=== PATIENT | female | born 1990 | race Caucasian/White ===

== ENCOUNTER → 2022-03-11 09:50 | Outpatient (CLI) | payer OTHER, SELFPAY ==
--- NOTE | ~2022-03-11 | US_ITS ---
Thyroid ultrasound. Clinical History: Goiter Findings: Real-time sonography of the thyroid gland was performed. The right lobe measures 5.6 x 1.9 x 1.5 cm. The left lobe measures 4.8 x 1.3 x 1.5 cm. The isthmus is 3 mm in AP diameter. 3 mm hypoechoic, circumscribed right midpole nodule noted. Impression: Tiny right thyroid lobe nodule, as detailed above, which requires no further follow-up. Reviewed, dictated and finalized at location M. [employer] ANALYST Impression: Tiny right thyroid lobe nodule, as detailed above, which requires no further fo llow-up.
== END ==
PROVIDERS: PCP Family Medicine; Visit Provider Internal Medicine Endocrinology, Diabetes & Metabolism
DX: E04.1 Nontoxic single thyroid nodule (principal)
CPT/HCPCS: 76536

== ENCOUNTER 2022-12-19 03:23 | Observation (INO) | payer OTHER, SELFPAY ==
[2022-12-19 03:55] VITALS: BP 127/66; PULSE 69
[2022-12-19 04:01] VITALS: BP 125/71; PULSE 65
[2022-12-19 04:11] VITALS: BMI 31.7
--- NOTE | 2022-12-19 04:11 | OBADM ---
This patient, Mamie Vela, admitted to the OB room [facility] for observation. Patient/family oriented to hospital policies and general routines including ID bracelet, bed and alarms, visiting hours, pain management, procedures, bathroom and other care routines, personal items, smoking policy, room service/diet, and visiting hours. Patient/Family are encouraged to report perceived risks to care and to ask questions if they do not understand what they are told or what they should do.
[2022-12-19 04:16] VITALS: BP 102/60; PULSE 65
[2022-12-19] MEDS: ONDANSETRON HCL ODT 4 MG TABLET PO (04:37)
[2022-12-19 04:38] VITALS: BP 127/66; PULSE 71
--- NOTE | 2023-01-10 20:55 | PM.OBTRLD ---
OB - Triage/Final Diagnosis Visit Information Comments/Additional reasons for admission: I have assessed the risk for this patient, Mamie Vela, and determined that she would benefit from observation care. Final Diagnosis (1) False labor: Code(s): O47.9 - False labor, unspecified Status: Acute
== END 2022-12-19 04:38 | disposition home or self-care (01) ==
PROVIDERS: Admitting Provider Obstetrics & Gynecology; PCP Family Medicine; Visit Provider Obstetrics & Gynecology
DX: O47.03 False labor before 37 completed weeks of gestation, third trimester (principal); Z3A.32 32 weeks gestation of pregnancy
CPT/HCPCS: 59025; A9270; G0378; G0379

== ENCOUNTER 2022-12-20 07:46 | Outpatient (RCR) | payer OTHER, SELFPAY ==
[2022-11-29] MEDS: RHO(D) IMMUNE GLOBULIN 300 MCG/2 ML SYRINGE IM (17:07)
--- NOTE | ~2022-12-20 | US_ITS ---
US OB limited w BPP DATE: 12/20/2022 09:23 INDICATION: Biophysical profile and measurement of amniotic fluid index TECHNIQUE: Real-time and color flow imaging and Doppler analysis COMPARISON: None FINDINGS: Live montemayor intrauterine gestation, fetus in longitudinal lie, vertex presentation with heart rate of 145 bpm. Anterior placenta, no evidence of previa. Three-vessel umbilical cord. Amniotic fluid index measures 14.3 cm. (5th percentile BOAZ: 8.6 cm; 95th percentile BOAZ: 24.2 cm). BIOPHYSICAL PROFILE reported by extractions technician: breathin out of 2 movement: 2 out of 2 tone: 2 out of 2 Amniotic fluid pocket: 2 out of 2 Total score: 8 out of 8 IMPRESSION: Normal biophysical profile score of 8 out of 8 Amniotic fluid index measures 14.3 cm, normal Reviewed, dictated and finalized at Location [facility]. Reviewed, dictated and finalized at location A.
[2022-12-20 09:49] VITALS: BP 136/74; PULSE 84
== END 2023-01-28 10:19 | disposition home or self-care (01) ==
LOC: ANHOBOP 07:46
PROVIDERS: PCP Family Medicine; Visit Provider Obstetrics & Gynecology
DX: Z36.89 Encounter for other specified antenatal screening (principal); Z29.13 Encounter for prophylactic Rho(D) immune globulin; O36.0130 Maternal care for anti-D [Rh] antibodies, third trimester, not applicable or unspecified; Z3A.00 Weeks of gestation of pregnancy not specified
CPT/HCPCS: 36415; 59025; 76815; 76819; 85461; 86850; 86900; 86901; 90384; 96372; J2790

== ENCOUNTER 2022-12-29 16:58 | Observation (INO) | payer OTHER, SELFPAY ==
[2022-12-29] VITALS (17 sets, daily range): BP systolic 123–144; BP diastolic 74–84; PULSE 79–101; O2SAT 99–100
[2022-12-29 17:48] LABS: Hematocrit 21.5 % (37.0-47.0); Mean Corpuscular HGB Conc 31.6 g/dl (32-36); Mean Corpuscular Hemoglobin 30.9 pg (26-34); Mean Corpuscular Volume 97.7 fl (80-100); Mean Platelet Volume 11.9 fl (7.4-10.4); Platelet Count Result 105 k/mm3 (150-375); Red Cell Distribution Width 18.4 % (11.5-14.5); White Blood Count 13.6 K/mm3 (4.5-10.0)
[2022-12-29 17:53] LABS: Creatinine Urine 44.9 mg/dL; Total Protein Urine Random 61 mg/dL; Ur Ttl Prot Creatinine Ratio 1.36 mg/mg (0-0.20)
[2022-12-29 18:03] LABS: Alanine Aminotransferase 71 U/L (6-35); Albumin Level 3.2 g/dL (3.5-5.1); Alkaline Phosphatase 106 U/L (38-126); Anion Gap 4 mmol/L (8-16); Aspartate Amino Transferase 59 U/L (14-36); Bilirubin,Total 0.5 mg/dL (0.2-1.3); Blood Urea Nitrogen 25 mg/dL (7-17); Calcium 8.1 mg/dL (8.4-10.2); Carbon Dioxide 22 mmol/L (22-30); Chloride 104 mmol/L (98-107); Estimated Glomerular Filt Rate 57; Glucose 81 mg/dL (65-110); Potassium 4.9 mmol/L (3.4-5.0); Sodium 130 mmol/L (137-145); Uric Acid 11.3 mg/dL (2.5-7.5)
[2022-12-29 18:04] LABS: Appearance Urine Clear (Clear); Bacteria Urine 1+ /hpf; Bilirubin Urine Negative (Negative); Blood Urine 1+ (Negative); Color Urine Yellow (Yellow); Glucose Urine UA Negative (Negative); Ketones Urine Negative (Negative); Leukocyte Esterase Ur Trace LEU/UL (NEGATIVE); Need Manual Microscopic Reviewed; Nitrate Urine Negative (Negative); Non Pathogenic Casts 0-2; Protein Urine 1+ mg/dL (Negative); RBC Urine 0-2 /hpf (0-2); Specific Grav Ur 1.007 (1.001-1.035); Squamous Epithelial Cell Urine Few /hpf (Few); Urobilinogen Urine 0.2 mg/dL (<2.0); pH Urine 5.5 (5.0-9.0)
[2022-12-29 18:05] LABS: Add Urine Microscopic? YES
[2022-12-29 18:13] LABS: Hemoglobin 6.8 g/dL (12.0-15.0)
[2022-12-29 18:14] LABS: Anisocytosis 2+ (NORMAL); Band Neutrophils Percent 6 % (0-6); Eosinophils Absolute Manual 0.13 K/mm3 (0.02-0.5); Eosinophils Percent Manual 1 % (0-4); Lymphocytes Absolute Manual 1.63 K/mm3 (1.1-4.5); Lymphocytes Percent Manual 12 % (18-44); Metamyelocytes Percent 2 %; Monocytes Absolute Manual 0.54 K/mm3 (0.1-0.90); Monocytes Percent Manual 4 % (3-9); Neutrophils Absolute Manual 11.01 K/mm3 (1.7-7.2); Neutrophils Percent Manual 75 % (46-73); Platelet Estimate Decreased (Adequate); Total Cells Counted 100
[2022-12-29 18:15] LABS: Atypical Lymphocytes Present; Ovalocytes 1+ (NORMAL); Schistocytes None Seen (NORMAL)
[2022-12-29] MEDS: BETAMETHASONE SOD PHOS/ACETATE 30 MG/5 ML VIAL 12 MG IM (18:28)
[2022-12-29] MEDS: LACTATED RINGERS 1,000 ML 75 ML IV CONT (18:50)
[2022-12-29] MEDS: MAGNESIUM SULF 4 GM/WATER100ML 4 GM/100 ML BAG IVPB (18:52)
--- NOTE | 2022-12-29 19:00 | PM.IMHP ---
H&P: HPI History of Present Illness Date/Time: 12/29/22 19:00 Chief Complaint: Elevated BP Narrative: Patient presents from the office for elevated BP in the office. No symptoms of preeclampsia. No hx of cHTN or gHTN thus far in the . has been complicated by hyperthyroidism on PTU as well as two fibroids (anterior L [id number], R lower posterior 8.6x8.1x9cm) that have been increasing in size. Denies contractions, LOF or VB. Good movement. Review of Systems Review of Systems: All systems reviewed & are unremarkable except as noted in HPI and below Meds Home Medications and Allergies Allergies Allergy/AdvReac Type Severity Reaction Status Date / Time No Known Allergies Allergy Verified 12/19/22 04:23 Vital Signs Vital Signs - 24 hr 12/29/22 17:22 12/29/22 17:45 12/29/22 18:00 Pulse Rate 90 84 83 Blood Pressure 138/79 123/74 123/75 12/29/22 18:15 12/29/22 18:30 12/29/22 18:45 Pulse Rate 88 96 90 Blood Pressure 127/75 142/84 H 144/78 H Exam Const: General: comfortable and no acute distress HENMT: Face/Nose/Sinus: Normal nares present Mouth: Yes moist mucous membranes Eyes: General: appearance normal, both eyes and all related structures Neck: Neck: supple Resp: Effort & Inspection: normal respiratory effort Cardio: Rate: regular rate Rhythm: regular rhythm GI: GI Palp: Yes Soft to palpation Other: gravid Neuro: General: gait normal Speech: normal speech Motor exam (neuro): 5/5 motor strength present throughout and Normal motor muscle tone present throughout Sensory Exam: normal sensation Extrem: General: normal to inspection and pedal edema (minimal) bilaterally Psych: Mental Status: mental status grossly normal Affect: normal affect H&P: Results Labs Labs: Short CBC 12/29/22 Range/Units 17:27 WBC 13.6 H (4.5-10.0) K/mm3 Hgb 6.8 L* (12.0-15.0) g/dL Hct 21.5 L (37.0-47.0) % Plt Count 105 L (150-375) k/mm3 BMP 12/29/22 17:27 Sodium 130 L Potassium 4.9 Chloride 104 Carbon Dioxide 22 BUN 25 H Creatinine 1.10 H Glucose 81 Calcium 8.1 L Liver Function 12/29/22 Range/Units 17:27 Total Bilirubin 0.5 (0.2-1.3) mg/dL AST 59 H (14-36) U/L ALT 71 H (6-35) U/L Alkaline Phosphatase 106 (38-126) U/L Albumin 3.2 L (3.5-5.1) g/dL Urine 12/29/22 Range/Units 17:27 Urine Color Yellow (Yellow) Urine Appearance Clear (Clear) Urine pH 5.5 (5.0-9.0) Ur Specific [place] 1.007 (1.001-1.035) Urine Protein 1+ H (Negative) mg/dL Urine Glucose (UA) Negative (Negative) mg/dL Assessment and Plan Assessment and plan (1) Pre-eclampsia, severe, antepartum: Code(s): O14.10 - Severe pre-eclampsia, unspecified trimester Status: Acute (2) Fibroid uterus: Code(s): D25.9 - Leiomyoma of uterus, unspecified Status: Acute (3) Hyperthyroidism affecting : Code(s): O99.280 - Endocrine, nutritional and metabolic diseases complicating , unspecified trimester; E05.90 - Thyrotoxicosis, unspecified without thyrotoxic crisis or storm Status: Acute Plan Labs c/w preeclampsia with severe features by creatinine, concerning for developing HELLP. GLucose normal, low suspicion for AFLP. MgSO4 started for seizure prophylaxis, BMZ given x1. NST reactive. Discussed with [facility] team, will transfer to [facility] for further workup.
[2022-12-29] MEDS: MAGNESIUM SULF 2 GM/WATER 50ML 2 GM/50 ML BAG IVPB (19:10)
[2022-12-29] MEDS: MAGNESIUM SULF 20GM/WATER500ML 500 ML 50 MG IV CONT (19:48)
[2022-12-29 19:53] LABS: Lactate Dehydrogenase 837 U/L (120-246)
[2022-12-29 19:55] LABS: Prothrombin Time 13.1 Seconds (11.1-14.7)
[2022-12-29 19:56] LABS: Fibrinogen 411 mg/dl (215-510); Partial Thromboplastin Time 25.5 SECONDS (22.3-36.8)
--- NOTE | 2022-12-31 07:50 | PM.TDS ---
Transfer Discharge Sum: Prov Provider Date of admission: 12/29/22 16:58 Primary care physician: Venita Singh, Admitting clinician: Sai Phillips MD Receiving physician/facility: Dr. Cohen [facility] DS: Admitting Diagnosis Discharge Date 12/29/22 Admitting Diagnosis elevated BP DS: Discharge Diagnosis Discharge Diagnosis (1) Pre-eclampsia, severe, antepartum: Code(s): O14.10 - Severe pre-eclampsia, unspecified trimester Status: Acute Assessment and Plan: Asymptomatic BPs elevated 130s-140s/80s-90s Plt 105, Cr 1.1, AST/ALT elevated MgSO4 started prior to transfer 2u pRBC ordered NPO Transfer Discharge Sum: Hosp Hospital Course Hospital course: Mamie Vela is a 32 year old female at 34 weeks gestation who presented for elevated BP from the office. She was found to have thrombocytopenia, anemia to Hgb 6.5, elevated Cr, and elevated LFTs, c/w preeclampsia with severe features, concerning for developing HELLP syndrome. She was started on MgSO4 for seizure ppx and received BMZ x1. She was stable for transfer to [facility] for further evaluation at treatment. Time Spent with Patient Time attestation: Total time spent providing and/or coordinating transfer services: Exam Const: General: comfortable and no acute distress HENMT: Face/Nose/Sinus: Normal nares present Mouth: Yes moist mucous membranes Eyes: General: appearance normal, both eyes and all related structures Resp: Effort & Inspection: normal respiratory effort Cardio: Rate: regular rate Rhythm: regular rhythm GI: GI Palp: Yes Soft to palpation Skin: General skin exam: normal color and no rashes or lesions noted Neuro: General: gait normal Speech: normal speech Motor exam (neuro): 5/5 motor strength present throughout Sensory Exam: normal sensation Extrem: General: normal to inspection Psych: Mental Status: mental status grossly normal Affect: normal affect
[2023-01-04 04:00] LABS: Haptoglobin <8 mg/dL (43-212)
== END 2022-12-29 20:10 | disposition short-term general hospital (02) ==
LOC: ANHOBOP 17:03 → ANHOBPP 17:03 → ANHOBOP 18:21 → ANHOBPP 18:21
PROVIDERS: Admitting Provider Obstetrics & Gynecology; PCP Family Medicine; Visit Provider Obstetrics & Gynecology
DX: O14.13 Severe pre-eclampsia, third trimester (principal); O99.283 Endocrine, nutritional and metabolic diseases complicating pregnancy, third trimester; E05.90 Thyrotoxicosis, unspecified without thyrotoxic crisis or storm; O34.13 Maternal care for benign tumor of corpus uteri, third trimester; Z3A.34 34 weeks gestation of pregnancy
CPT/HCPCS: 36415; 80053; 81001; 82570; 83010; 83615; 84156; 84550; 85025; 85384; 85610; 85730; 86850; 86880; 86900; 86901; 86920; 87086; 87088; 96365; 96372; G0378; G0379; J0702; J3475; J7120